=== PATIENT | male | born 1950 | race Caucasian/White ===

== ENCOUNTER 2022-02-11 15:34 | Inpatient (IN) | payer MEDICARE ==
[2022-02-11] MEDS ORDERED: AMPICILLIN-SULBACTAM 3 GM in SODIUM CHLORIDE 0.9% 100 ML IVPB STA (16:38)
[2022-02-11] MEDS ORDERED: VANCOMYCIN IV PER PHARMACY 1 EACH MISC MISCELLANE PRN (16:38)
[2022-02-11 16:54] LABS: Basophils # (A) 0.1 k/uL (0-0.2); Basophils % (A) 1 %; Eosinophils # (A) 0.3 k/uL (0-0.7); Eosinophils % (A) 4 %; HCT 47.6 % (39.0-53.0); HGB 15.7 gm/dL (13.0-17.5); Lymphocytes # (A) 1.4 k/uL (1.0-4.8); Lymphocytes % (A) 17 %; MCH 30.7 pg (25.0-35.0); MCHC 33.1 g/dL (31.0-37.0); MCV 92.8 fL (80.0-100.0); Mean Platelet Volume 6.5; Monocytes # (A) 0.7 k/uL (0-1.0); Monocytes % (A) 8 %; Neutrophils # (A) 6.1 k/uL (1.3-7.7); Neutrophils % (A) 70 %; Platelet Count 329 k/uL (150-450); RBC 5.13 m/uL (4.30-5.90); RDW 12.8 % (11.5-15.5); WBC 8.7 k/uL (3.8-10.6)
[2022-02-11 17:11] LABS: Albumin 4.3 g/dL (3.5-5.0); Calcium 10.1 mg/dL (8.4-10.2); Potassium 5.5 mmol/L (3.5-5.1); Total Bilirubin 0.9 mg/dL (0.2-1.3); Total Protein 8.3 g/dL (6.3-8.2)
[2022-02-11] MEDS ORDERED: VANCOMYCIN 1,750 MG in SODIUM CHLORIDE 0.9% 500 ML 500 ML IVPB ONE (17:30)
[2022-02-11] MEDS ORDERED: SODIUM CHLORIDE 0.9% 1,000 ML IV STA (17:55)
--- NOTE | 2022-02-11 17:57 | ED ---
General Adult HPI - General Chief complaint: Wound/Laceration Stated complaint: R foot pain Time Seen by Provider: 02/11/22 15:40 Source: patient Mode of arrival: ambulatory Limitations: no limitations - History of Present Illness Initial comments: 71-year-old male presents to the emergency department for admission. States that he is currently being treated for a wound on his right foot by his food expeditor, Dr. Barajas. On he dropped a transmission on his right foot. The dorsal aspect of his right foot was punctured with a nail. He went into [facility] the next day and an x-ray was performed. He was placed on Keflex. Take the medications as directed for 10 days and his wound continued to get worse. He saw Dr. Barajas yesterday who debride at the area. He switched his antibiotics. He was to go back today to the office for evaluation. Dr. Barajas did not like the way that it was healing and recommended that he come into the ospital for IV antibiotics. Patient is a diabetic. Has been ambulating with a postop shoe. He denies any fevers or chills. No other alleviating, precipitating or modifying factors - Related Data Home Medications Medication Instructions Recorded Confirmed Atorvastatin [Lipitor] 10 mg PO HS 02/11/22 02/11/22 Cephalexin [Keflex] 500 mg PO QID 02/11/22 02/11/22 Esomeprazole Magnesium [NexIUM 20 mg PO HS 02/11/22 02/11/22 24Hr] Metoprolol Succinate (ER) [Toprol 50 mg PO HS 02/11/22 02/11/22 Xl] Pioglitazone [Actos] 30 mg PO HS 02/11/22 02/11/22 Pramipexole [Mirapex] 0.125 mg PO HS 02/11/22 02/11/22 lisinopriL 10 mg PO HS 02/11/22 02/11/22 metFORMIN HCL [Glucophage] 1,000 mg PO HS 02/11/22 02/11/22 traZODone HCL [Desyrel] 25 - 50 mg PO HS 02/11/22 02/11/22 Allergies Allergy/AdvReac Type Severity Reaction Status Date / Time No Known Allergies Allergy Verified 02/11/22 18:31 Review of Systems ROS Statement: Those systems with pertinent positive or pertinent negative responses have been documented in the HPI. ROS Other: All systems not noted in ROS Statement are negative. Past Medical History Past Medical History: CVA/TIA, Diabetes Mellitus History of Any Multi-Drug Resistant Organisms: None Reported Past Surgical History: Back Surgery, Cholecystectomy, Orthopedic Surgery Past Psychological History: No Psychological Hx Reported Smoking Status: Never smoker Past Alcohol Use History: Occasional Past Drug Use History: None Reported - Past Family History family Family Medical History: No Reported History General Exam Limitations: no limitations General appearance: alert, in no apparent distress Head exam: Present: atraumatic, normocephalic, normal inspection Eye exam: Present: normal appearance, PERRL, EOMI. Absent: scleral icterus, conjunctival injection, periorbital swelling ENT exam: Present: normal exam, mucous membranes moist Neck exam: Present: normal inspection. Absent: tenderness, meningismus, lymphadenopathy Respiratory exam: Present: normal lung sounds bilaterally. Absent: respiratory distress, wheezes, rales, rhonchi, stridor Cardiovascular Exam: Present: normal rhythm, tachycardia, normal heart sounds. Absent: systolic murmur, diastolic murmur, rubs, gallop, clicks GI/Abdominal exam: Present: soft, normal bowel sounds. Absent: distended, tenderness, guarding, rebound, rigid Extremities exam: Present: full ROM, tenderness, normal capillary refill, pedal edema, other (puncture wound dorsal right foot. approximately 10 x 10 x 5 mm. well -debrided. no pustular drainage. surrounding erythema. normal cap refill. ). Absent: joint swelling, calf tenderness Back exam: Present: normal inspection Neurological exam: Present: alert, oriented X3, CN II-XII intact Psychiatric exam: Present: normal affect, normal mood Skin exam: Present: warm, dry, intact, normal color. Absent: rash Course Vital Signs 02/11/22 02/11/22 15:37 20:21 Temperature 98.6 F Pulse Rate 117 H 104 H Respiratory 20 18 Rate Blood Pressure 150/84 175/97 O2 Sat by Pulse 96 97 Oximetry Medical Decision Making - Medical Decision Making Upon arrival patient is placed into room 25. A thorough history and physical exam was performed. IV access is established and laboratory studies are conducted. Laboratory studies are reviewed and demonstrated a lactic acid 2.2. He was given a dose of Unasyn and Vanco. X-rays and wound cultures were performed at Dr. Barajas's office yesterday and we will request these records. The results of the laboratory studies were discussed the patient. As he has failed outpatient treatment, admission was recommended for which the patient did agree to. Called and spoke with Dr. Levin who agreed to admit the patient. Infectious disease will be counseling. Patient transferred to floor in stable condition - Lab Data Result diagrams: 02/13/22 05:40 02/13/22 05:40 Lab Results 02/11/22 02/11/22 02/11/22 Range/Units 16:36 16:36 16:36 WBC 8.7 (3.8-10.6) k/uL RBC 5.13 (4.30-5.90) m/uL Hgb 15.7 (13.0-17.5) gm/dL Hct 47.6 (39.0-53.0) % MCV 92.8 (80.0-100.0) fL MCH 30.7 (25.0-35.0) pg MCHC 33.1 (31.0-37.0) g/dL RDW 12.8 (11.5-15.5) % Plt Count 329 (150-450) k/uL MPV 6.5 Neutrophils % 70 % Lymphocytes % 17 % Monocytes % 8 % Eosinophils % 4 % Basophils % 1 % Neutrophils # 6.1 (1.3-7.7) k/uL Lymphocytes # 1.4 (1.0-4.8) k/uL Monocytes # 0.7 (0-1.0) k/uL Eosinophils # 0.3 (0-0.7) k/uL Basophils # 0.1 (0-0.2) k/uL Sodium 137 (137-145) mmol/L Potassium 5.5 H (3.5-5.1) mmol/L Chloride 101 (98-107) mmol/L Carbon Dioxide 27 (22-30) mmol/L Anion Gap 9 mmol/L BUN 19 (9-20) mg/dL Creatinine 1.05 (0.66-1.25) mg/dL Est GFR (CKD-EPI)AfAm 82 (>60 ml/min/1.73 sqM) Est GFR (CKD-EPI)NonAf 71 (>60 ml/min/1.73 sqM) Glucose 141 H (74-99) mg/dL Lactic Ac Sepsis Rflx Plasma Lactic Acid Darius 2.2 H* (0.7-2.0) mmol/L Calcium 10.1 (8.4-10.2) mg/dL Total Bilirubin 0.9 (0.2-1.3) mg/dL AST 36 (17-59) U/L ALT 32 (4-49) U/L Alkaline Phosphatase 67 (38-126) U/L C-Reactive Protein 1.0 H (<1.0) mg/dL Total Protein 8.3 H (6.3-8.2) g/dL Albumin 4.3 (3.5-5.0) g/dL 02/11/22 Range/Units 17:14 WBC (3.8-10.6) k/uL RBC (4.30-5.90) m/uL Hgb (13.0-17.5) gm/dL Hct (39.0-53.0) % MCV (80.0-100.0) fL MCH (25.0-35.0) pg MCHC (31.0-37.0) g/dL RDW (11.5-15.5) % Plt Count (150-450) k/uL MPV Neutrophils % % Lymphocytes % % Monocytes % % Eosinophils % % Basophils % % Neutrophils # (1.3-7.7) k/uL Lymphocytes # (1.0-4.8) k/uL Monocytes # (0-1.0) k/uL Eosinophils # (0-0.7) k/uL Basophils # (0-0.2) k/uL Sodium (137-145) mmol/L Potassium (3.5-5.1) mmol/L Chloride (98-107) mmol/L Carbon Dioxide (22-30) mmol/L Anion Gap mmol/L BUN (9-20) mg/dL Creatinine (0.66-1.25) mg/dL Est GFR (CKD-EPI)AfAm (>60 ml/min/1.73 sqM) Est GFR (CKD-EPI)NonAf (>60 ml/min/1.73 sqM) Glucose (74-99) mg/dL Lactic Ac Sepsis Rflx Y Plasma Lactic Acid Darius (0.7-2.0) mmol/L Calcium (8.4-10.2) mg/dL Total Bilirubin (0.2-1.3) mg/dL AST (17-59) U/L ALT (4-49) U/L Alkaline Phosphatase (38-126) U/L C-Reactive Protein (<1.0) mg/dL Total Protein (6.3-8.2) g/dL Albumin (3.5-5.0) g/dL Disposition Clinical Impression: Cellulitis, Puncture wound, Failure of outpatient treatment Disposition[facility] Condition: Stable Is patient prescribed a controlled substance at d/c from ED?: No Decision to Admit Reason: Admit from EC Decision Date: 02/11/22 Decision Time: 18:38
[2022-02-11] MEDS ORDERED: ACETAMINOPHEN TAB 325 MG TAB PO PRN (18:38)
[2022-02-11] MEDS ORDERED: NALOXONE 0.4 MG/ML 1 ML VIAL IV PRN (18:38)
[2022-02-11] MEDS ORDERED: HYDROcodone/APAP 10-325MG 1 EACH TAB PO ONE (19:06)
--- NOTE | 2022-02-12 00:07 | P.HPIM ---
History of Present Illness H&P Date: 02/11/22 Chief Complaint: right foot ulcer 71 year old male with DM, hypertension patient had a recent injury about a week ago ,resulted in a wound over the right foot, presented to the ED at the time and was given a prescription of Keflex, he followed up with podiatry, and was given more antibiotics, then yesterday he had debridement done. 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 patient denies fever, chills, reports some pain in his foot controlled with nor co. denies any swelling in the leg. workup in the ED, showed elevated CRP, mild hyperkalemia , lactic acidosis . no leukocytosis Review of Systems Pertinent positives as noted in HPI. All other systems were reviewed and are negative Past Medical History Past Medical History: CVA/TIA, Diabetes Mellitus Additional Past Medical History / Comment(s): CVA 5 yrs ago with no residual. History of Any Multi-Drug Resistant Organisms: None Reported Past Surgical History: Back Surgery, Cholecystectomy, Orthopedic Surgery Additional Past Surgical History / Comment(s): Right shoulder surgery. Past Anesthesia/Blood Transfusion Reactions: No Reported Reaction Past Psychological History: No Psychological Hx Reported Smoking Status: Never smoker Past Alcohol Use History: Occasional Past Drug Use History: None Reported - Past Family History family Family Medical History: No Reported History Medications and Allergies Home Medications Medication Instructions Recorded Confirmed Type Atorvastatin [Lipitor] 10 mg PO HS 02/11/22 02/11/22 History Cephalexin [Keflex] 500 mg PO QID 02/11/22 02/11/22 History Esomeprazole Magnesium [NexIUM 20 mg PO HS 02/11/22 02/11/22 History 24Hr] Metoprolol Succinate (ER) [Toprol 50 mg PO HS 02/11/22 02/11/22 History Xl] Pioglitazone [Actos] 30 mg PO HS 02/11/22 02/11/22 History Pramipexole [Mirapex] 0.125 mg PO HS 02/11/22 02/11/22 History lisinopriL 10 mg PO HS 02/11/22 02/11/22 History metFORMIN HCL [Glucophage] 1,000 mg PO HS 02/11/22 02/11/22 History traZODone HCL [Desyrel] 25 - 50 mg PO HS 02/11/22 02/11/22 History Allergies Allergy/AdvReac Type Severity Reaction Status Date / Time No Known Allergies Allergy Verified 02/11/22 18:31 Physical Exam Vitals: Vital Signs Temp Pulse Pulse Resp BP BP Pulse Ox 02/11/22 22:06 97.8 F 102 H 16 183/98 98 02/11/22 21:47 18 02/11/22 20:21 104 H 18 175/97 97 02/11/22 15:37 98.6 F 117 H 20 150/84 96 Intake and Output 02/11/22 02/11/22 02/12/22 14:59 22:59 06:59 Output Total 3 Balance -3 Output: Stool 3 Other: Voiding Method Toilet # Voids 0 Weight 90.718 kg Constitutional: No acute distress, conversant, pleasant Eyes: Anicteric sclerae, moist conjunctiva, Pupils equal round reactive to light ENMT: NC/AT Oropharynx clear, no erythema, or exudates Neck: Supple, FROM, no masses, or JVD No carotid bruits No thyromegaly Lungs: Clear to auscultation Clear to percussion Normal respiratory effort, no accessory muscle use Cardiovascular: Heart regular in rate and rhythm, No murmurs, gallops, or rubs No peripheral edema Abdominal: Soft Nontender, no guarding, rebound or rigidity Abdomen moving with respiration Normoactive bowel sounds No hepatomegaly, No splenomegaly No palpable mass No abdominal wall hernia noted Skin: erythema around a 1.5X1.5 cm ulcer on the dorsum of the right foot no drainage, tender to palpation , slight induration around the wound otherwise, Normal temperature, tone, texture, turgor No induration No subcutaneous nodules No rash, lesions No ulcers Extremities: No digital cyanosis No clubbing Pedal pulses intact and symmetrical Radial pulses intact and symmetrical No calf tenderness Psychiatric: Alert and oriented to person, place and time Appropriate affect fair judgement Neuro Muscles Strength 5/5 in all 4 extremities Sensation to light touch grossly present throughout Cranial nerves II-XII grossly intact No focal sensory deficits Lymphatics: no palpable cervical or supraclavicular , or inguinal lymph nodes Results CBC & Chem 7: 02/11/22 16:36 02/11/22 16:36 Labs: Abnormal Lab Results - Last 24 Hours (Table) 02/11/22 02/11/22 Range/Units 16:36 16:36 Potassium 5.5 H (3.5-5.1) mmol/L Glucose 141 H (74-99) mg/dL Plasma Lactic Acid Darius 2.2 H* (0.7-2.0) mmol/L C-Reactive Protein 1.0 H (<1.0) mg/dL Total Protein 8.3 H (6.3-8.2) g/dL Thrombosis Risk Factor Assmnt - Choose All That Apply Any of the Below Risk Factors Present?: Yes Each Factor Represents 1 point: Obesity (BMI >25) Other Risk Factors: Yes Each Risk Factor Represents 2 Points: Age 61-74 years Thrombosis Risk Factor Assessment Total Risk Factor Score: 3 Thrombosis Risk Factor Assessment Level: Moderate Risk Assessment and Plan Assessment: right foot ulcer secondary to traumatic injury failed outpatient therapy initiate on IV antibiotics with vanco follow up cultures pain control with opiods lactic acidosis IVF hydration with normal saline resolved mild hyperkalemia follow up closely chronic conditions DM , insulin sliding scale hypertension , resume home meds heparin sc tid for DVT PPX PPI full code anticipated length of stay < 2 midnights
[2022-02-12] MEDS: HEPARIN SODIUM,PORCINE/PF 5,000 UNIT/0.5 ML SYRINGE SQ SCH ×3 (00:38→18:59)
[2022-02-12] MEDS: METOPROLOL SUCCINATE (ER) 50 MG TAB.ER.24H PO SCH ×2 (00:39→22:10)
[2022-02-12] MEDS: PRAMIPEXOLE 0.125 MG TAB PO SCH ×2 (00:39→22:10)
[2022-02-12] MEDS: MORPHINE SULFATE 4 MG/ML SYRINGE IVP PRN ×4 (02:43→18:58)
[2022-02-12 07:05] LABS: Glucose,Whole Blood 156 mg/dL (75-99)
[2022-02-12 08:38] LABS: Basophils # (A) 0.05 X 10*3/uL (0.00-0.10); Basophils % (A) 0.6 %; Eosinophils # (A) 0.29 X 10*3/uL (0.04-0.35); Eosinophils % (A) 3.6 %; HCT 43.7 % (39.6-50.0); HGB 14.5 g/dL (13.0-17.0); Immature Grans, Automated 0.4 %; Lymphocytes # (A) 1.48 X 10*3/uL (0.90-5.00); Lymphocytes % (A) 18.3 %; MCH 30.7 pg (27.0-32.0); MCHC 33.2 g/dL (32.0-37.0); MCV 92.4 fL (80.0-97.0); Monocytes # (A) 0.72 X 10*3/uL (0.20-1.00); Monocytes % (A) 8.9 %; NRBC Per 100 WBC 0 /100 WBCS (0.0-0.0); Neutrophils # (A) 5.52 X 10*3/uL (1.80-7.70); Neutrophils % (A) 68.2 %; Platelet Count 285 X 10*3/uL (140-440); RBC 4.73 X 10*6/uL (4.40-5.60); RDW 12.8 % (11.5-14.5); WBC 8.09 X 10*3/uL (4.50-10.00)
[2022-02-12 08:57] LABS: African American GFR (CKD) 79.1 (60.0-200.0); Anion Gap 10.4 mmol/L (10.00-18.00); BUN/Creat Ratio 14.26 Ratio (12.00-20.00); Blood Urea Nitrogen 15.4 mg/dL (9.0-27.0); Calcium 9.2 mg/dL (8.7-10.3); Carbon Dioxide 23.5 mmol/L (20.0-27.5); Non-African American GFR(CKD) 68.2 (60.0-200.0); Potassium 5.2 mmol/L (3.5-5.5)
[2022-02-12] MEDS: INSULIN ASPART (NovoLOG) 100 UNIT/ML VIAL SQ SCH ×4 (09:23→21:43)
--- NOTE | 2022-02-12 10:50 | P.PN ---
Subjective Progress Note Date: 02/12/22 Principal diagnosis: Cellulitis 71 year old male with DM, hypertension Patient presents to the hospital with worsening erythema of his right foot. Patient has a chronic wound and most recently is being followed by podiatry team. 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 Those wound cultures are currently pending per patient. workup in the ED, showed elevated CRP, mild hyperkalemia , lactic acidosis . no leukocytosis. Patient was admitted to the hospital for treatment of cellulitis. 02/12/2022: Patient denies any new complaints of nausea vomiting fever or chills Objective - Vital Signs Vital signs: Vital Signs Temp 98.0 F 02/12/22 07:00 Pulse 86 02/12/22 07:00 Resp 18 02/12/22 07:00 BP 116/70 02/12/22 07:00 Pulse Ox 98 02/12/22 07:00 Intake & Output 02/11/22 02/12/22 02/12/22 18:59 06:59 18:59 Intake Total 180 Output Total 3 Balance -3 180 Weight 90.718 kg 90.718 kg Intake: Oral 180 Output: Stool 3 Other: Voiding Method Toilet # Voids 2 - Exam Constitutional: No acute distress, conversant, pleasant Eyes: Anicteric sclerae, moist conjunctiva, Pupils equal round reactive to light ENMT: NC/AT Oropharynx clear, no erythema, or exudates Neck: Supple, FROM, no masses, or JVD No carotid bruits No thyromegaly Lungs: Clear to auscultation Clear to percussion Normal respiratory effort, no accessory muscle use Cardiovascular: Heart regular in rate and rhythm, No murmurs, gallops, or rubs No peripheral edema Abdominal: Soft Nontender, no guarding, rebound or rigidity Abdomen moving with respiration Normoactive bowel sounds No hepatomegaly, No splenomegaly No palpable mass No abdominal wall hernia noted Skin: erythema around a 1.5X1.5 cm ulcer on the dorsum of the right foot no drainage, tender to palpation , slight induration around the wound otherwise, Normal temperature, tone, texture, turgor No induration No subcutaneous nodules No rash, lesions No ulcers Extremities: No digital cyanosis No clubbing Pedal pulses intact and symmetrical Radial pulses intact and symmetrical No calf tenderness Psychiatric: Alert and oriented to person, place and time Appropriate affect fair judgement Neuro Muscles Strength 5/5 in all 4 extremities Sensation to light touch grossly present throughout Cranial nerves II-XII grossly intact No focal sensory deficits Lymphatics: no palpable cervical or supraclavicular , or inguinal lymph nodes - Labs CBC & Chem 7: 02/12/22 05:48 02/12/22 05:48 Labs: Abnormal Lab Results - Last 24 Hours (Table) 02/11/22 02/11/22 02/12/22 Range/Units 16:36 16:36 05:48 MPV 9.0 L (9.5-12.2) fL Potassium 5.5 H (3.5-5.1) mmol/L Glucose 141 H (74-99) mg/dL POC Glucose (mg/dL) (75-99) mg/dL Plasma Lactic Acid Darius 2.2 H* (0.7-2.0) mmol/L C-Reactive Protein 1.0 H (<1.0) mg/dL Total Protein 8.3 H (6.3-8.2) g/dL 02/12/22 02/12/22 Range/Units 05:48 07:04 MPV (9.5-12.2) fL Potassium (3.5-5.1) mmol/L Glucose 151 H (74-99) mg/dL POC Glucose (mg/dL) 156 H (75-99) mg/dL Plasma Lactic Acid Darius (0.7-2.0) mmol/L C-Reactive Protein (<1.0) mg/dL Total Protein (6.3-8.2) g/dL Assessment and Plan (1) Cellulitis Current Visit: Yes Status: Acute Code(s): L03.90 - CELLULITIS, UNSPECIFIED SNOMED Code(s): 701383848 Plan: right foot ulcer secondary to traumatic injury Cellulitis right foot failed outpatient therapy Patient is status post debridement was recently performed by gang vibrator operator outpatient. Cultures are currently pending Patient is currently on IV antibiotics vancomycin which we will continue Continue with pain control -Infectious disease team following lactic acidosis-present on admission IVF hydration with normal saline resolved hyperkalemia Resolved Diabetes mellitus type 2 -Check hemoglobin A1c, continue sliding scale Hypertension -Continue with metoprolol DVT prophylaxis: Heparin subcu GI prophylaxis: PPI full code
[2022-02-12] MEDS: VANCOMYCIN 1,750 MG in SODIUM CHLORIDE 0.9% 500 ML 500 ML IVPB SCH (11:35)
[2022-02-12 12:22] LABS: Glucose,Whole Blood 125 mg/dL (75-99)
[2022-02-12 17:09] LABS: Glucose,Whole Blood 120 mg/dL (75-99)
[2022-02-12 21:14] LABS: Glucose,Whole Blood 117 mg/dL (75-99)
[2022-02-12] MEDS: PANTOPRAZOLE 40 MG TABLET PO SCH (22:10)
[2022-02-12] MEDS: lisinopriL 10 MG TAB PO SCH (22:10)
[2022-02-12] MEDS: ATORVASTATIN 10 MG TAB PO SCH (22:10)
--- NOTE | 2022-02-13 00:05 | P.CONS ---
History of Present Illness - Reason for Consult Consult date: 02/12/22 Right foot puncture wound and cellulitis Requesting physician: Chelsey Duenas - Chief Complaint Right foot nonhealing wound x one week - History of Present Illness Patient is a 71-year-old male with a past medical history significant for diabetes mellitus and hypertension apparently the patient did have an injury to the right foot as a transmission fell on his right foot at the patient was trying to move it leading to a puncture wound, patient apparently was seen in the ER and has been treated with the Keflex and was advised to follow-up with podiatry patient was evaluated by Dr. Barajas yesterday apparently he did some debridement but looks like no culture and the patient was sent to the ER for IV antibiotic therapy concerning for cellulitis patient on presentation to the hospital was afebrile and no fever have been recorded subsequently patient did have normal white count kidney function has been normal patient did have blood cultures obtained which are currently pending no local cultures patient was started on vancomycin infectious disease was consulted for further management of antibiotic therapy, patient currently denies having any fever or any chills, repeat denies having any URI symptoms no chest pain no shortness of breath no cough no nausea no vomiting no abdominal pain no diarrhea patient did have mild healthy looking pain to the right foot especially when he walks on it or it is touch more of a 2-3 out of 10 and no radiation and denies have any foul-smelling drainage Review of Systems Positive point has been mentioned in the HPI rest of the systems are negative Past Medical History Past Medical History: CVA/TIA, Diabetes Mellitus Additional Past Medical History / Comment(s): CVA 5 yrs ago with no residual. History of Any Multi-Drug Resistant Organisms: None Reported Past Surgical History: Back Surgery, Cholecystectomy, Orthopedic Surgery Additional Past Surgical History / Comment(s): Right shoulder surgery. Past Anesthesia/Blood Transfusion Reactions: No Reported Reaction Past Psychological History: No Psychological Hx Reported Smoking Status: Never smoker Past Alcohol Use History: Occasional Past Drug Use History: None Reported - Past Family History family Family Medical History: No Reported History Medications and Allergies Home Medications Medication Instructions Recorded Confirmed Type Atorvastatin [Lipitor] 10 mg PO HS 02/11/22 02/11/22 History Cephalexin [Keflex] 500 mg PO QID 02/11/22 02/11/22 History Esomeprazole Magnesium [NexIUM 20 mg PO HS 02/11/22 02/11/22 History 24Hr] Metoprolol Succinate (ER) [Toprol 50 mg PO HS 02/11/22 02/11/22 History Xl] Pioglitazone [Actos] 30 mg PO HS 02/11/22 02/11/22 History Pramipexole [Mirapex] 0.125 mg PO HS 02/11/22 02/11/22 History lisinopriL 10 mg PO HS 02/11/22 02/11/22 History metFORMIN HCL [Glucophage] 1,000 mg PO HS 02/11/22 02/11/22 History traZODone HCL [Desyrel] 25 - 50 mg PO HS 02/11/22 02/11/22 History Allergies Allergy/AdvReac Type Severity Reaction Status Date / Time No Known Allergies Allergy Verified 02/11/22 18:31 Physical Exam Vitals: Vital Signs Temp Pulse Pulse Resp BP BP BP 02/12/22 14:38 97.6 F 82 18 162/80 02/12/22 07:00 98.0 F 86 18 116/70 02/12/22 02:40 98.2 F 89 17 144/78 02/11/22 22:06 97.8 F 102 H 16 183/98 02/11/22 21:47 18 02/11/22 20:21 104 H 18 175/97 Pulse Ox 02/12/22 14:38 97 02/12/22 07:00 98 02/12/22 02:40 95 02/11/22 22:06 98 02/11/22 21:47 02/11/22 20:21 97 Intake and Output 02/12/22 02/12/22 02/12/22 06:59 14:59 22:59 Intake Total 360 Balance 360 Intake: Oral 360 Other: # Voids 2 GENERAL DESCRIPTION: Elderly male lying in bed, no distress. No tachypnea or accessory muscle of respiration use. HEENT: Shows Pallor , no scleral icterus. Oral mucous membrane is dry. No pharyngeal erythema or thrush NECK: Trachea central, no thyromegaly. LUNGS: Unlabored breathing. Clear to auscultation anteriorly. No wheeze or crackle. HEART: S1, S2, regular rate and rhythm. No loud murmur ABDOMEN: Soft, no tenderness , guarding or rigidity, no organomegaly EXTREMITIES: No edema of feet. Right foot dorsum did have a wound with some slough tissue minimal surrounding redness no foul-smelling drainage SKIN: No rash, no masses palpable. NEUROLOGICAL: The patient is awake, alert, oriented x3, mood and affect normal. Results CBC & Chem 7: 02/12/22 05:48 02/12/22 05:48 Labs: Abnormal Lab Results - Last 24 Hours (Table) 02/11/22 02/11/22 02/12/22 Range/Units 16:36 16:36 05:48 MPV 9.0 L (9.5-12.2) fL Potassium 5.5 H (3.5-5.1) mmol/L Glucose 141 H (74-99) mg/dL POC Glucose (mg/dL) (75-99) mg/dL Plasma Lactic Acid Darius 2.2 H* (0.7-2.0) mmol/L C-Reactive Protein 1.0 H (<1.0) mg/dL Total Protein 8.3 H (6.3-8.2) g/dL 02/12/22 02/12/22 02/12/22 Range/Units 05:48 07:04 12:22 MPV (9.5-12.2) fL Potassium (3.5-5.1) mmol/L Glucose 151 H (74-99) mg/dL POC Glucose (mg/dL) 156 H 125 H (75-99) mg/dL Plasma Lactic Acid Darius (0.7-2.0) mmol/L C-Reactive Protein (<1.0) mg/dL Total Protein (6.3-8.2) g/dL Assessment and Plan (1) Cellulitis Current Visit: Yes Status: Acute Code(s): L03.90 - CELLULITIS, UNSPECIFIED SNOMED Code(s): 905401553 Plan: 1patient with right foot diabetic foot infection in this patient did have a traumatic wound to the right foot with evidence of secondary cellulitis failing outpatient oral Keflex therapy question of possible community associated MRSA the wound looks superficial however underlying deep infection not entirely excluded. 2we will obtain x-rays of the right foot to be sure evidence of any bony abnormality check a sed rate and a CRP. 3local wound culture to guide further antibiotic therapy. 4vancomycin pharmacy to dose target trough of 15 while watching kidney function and vancomycin trough closely. 5local wound care with the Medihoney followed by moist dressing to be changed daily. We will follow on clinical condition and cultures to further adjust medication if needed Thank you for this consultation will follow this patient along with you
[2022-02-13] MEDS: MORPHINE SULFATE 4 MG/ML SYRINGE IVP PRN ×2 (02:28→09:51)
[2022-02-13] MEDS: VANCOMYCIN 1,750 MG in SODIUM CHLORIDE 0.9% 500 ML 500 ML IVPB SCH ×2 (02:29→17:42)
[2022-02-13] MEDS: HEPARIN SODIUM,PORCINE/PF 5,000 UNIT/0.5 ML SYRINGE SQ SCH ×4 (02:32→22:41)
[2022-02-13 06:32] LABS: African American GFR (CKD) 82 (>60 ml/min/1.73 sqM); Anion Gap 4 mmol/L; Blood Urea Nitrogen 12 mg/dL (9-20); C Reactive Protein 0.8 mg/dL (<1.0); Calcium 8.6 mg/dL (8.4-10.2); Carbon Dioxide 28 mmol/L (22-30); Chloride 101 mmol/L (98-107); Glucose 136 mg/dL (74-99); Non-African American GFR(CKD) 71 (>60 ml/min/1.73 sqM); Potassium 4.6 mmol/L (3.5-5.1); Sodium 133 mmol/L (137-145)
[2022-02-13 07:16] LABS: Glucose,Whole Blood 144 mg/dL (75-99)
--- NOTE | 2022-02-13 08:17 | XR ---
EXAMINATION TYPE: XR foot complete RT DATE OF EXAM: 02/13/2022 COMPARISON: None HISTORY: Puncture wound dorsum of foot TECHNIQUE: Three-view right foot FINDINGS: No acute fractures are evident. There is diffuse soft tissue swelling. Secondary ossificati on center appears to be posterior to the navicular. Correlate with location of the patient's pain. No suspicious cortical erosions are identified. Plantar and Achilles tendon calcaneal heel spurs are present. IMPRESSION: 1. No acute osseous abnormality evident. No suspicious changes for osteomyelitis. 2. Soft tissue swelling over the dorsum of the foot. Some air may be present. Correlate with the time of the acute injury. Infection is not excluded.
[2022-02-13 09:12] LABS: Basophils # (A) 0.03 X 10*3/uL (0.00-0.10); Basophils % (A) 0.4 %; Eosinophils # (A) 0.34 X 10*3/uL (0.04-0.35); Eosinophils % (A) 4.6 %; HCT 42.5 % (39.6-50.0); HGB 14.2 g/dL (13.0-17.0); Immature Grans, Automated 0.3 %; Lymphocytes # (A) 1.42 X 10*3/uL (0.90-5.00); Lymphocytes % (A) 19.3 %; MCH 30.9 pg (27.0-32.0); MCHC 33.4 g/dL (32.0-37.0); MCV 92.4 fL (80.0-97.0); Mean Platelet Volume 8.9 fL (9.5-12.2); Monocytes # (A) 0.59 X 10*3/uL (0.20-1.00); NRBC Per 100 WBC 0 /100 WBCS (0.0-0.0); Neutrophils # (A) 4.94 X 10*3/uL (1.80-7.70); Neutrophils % (A) 67.4 %; Platelet Count 263 X 10*3/uL (140-440); RDW 12.7 % (11.5-14.5); WBC 7.34 X 10*3/uL (4.50-10.00)
[2022-02-13 09:40] LABS: Erythrocyte Sedimentation Rate 31 mm/Hr (0-20)
[2022-02-13] MEDS: INSULIN ASPART (NovoLOG) 100 UNIT/ML VIAL SQ SCH ×4 (09:50→21:00)
[2022-02-13 12:10] LABS: Glucose,Whole Blood 129 mg/dL (75-99)
[2022-02-13] MEDS: oxyCODONE-APAP 10-325MG 1 EACH TAB PO PRN ×2 (15:44→20:59)
--- NOTE | 2022-02-13 16:00 | P.PN ---
Subjective Progress Note Date: 02/13/22 Principal diagnosis: Right foot wound Patient was seen and examined. No acute events overnight. Patient reports improvement in the erythema and swelling around his right foot wound. He is currently on vancomycin IV. Wound cultures are collected and is pending. According to nursing, he has been using morphine [id number] for pain control. Objective - Vital Signs Vital signs: Vital Signs Temp 97.8 F 02/13/22 13:42 Pulse 74 02/13/22 13:42 Resp 16 02/13/22 13:42 BP 127/82 02/13/22 13:42 Pulse Ox 97 02/13/22 13:42 Intake & Output 02/12/22 02/13/22 02/13/22 18:59 06:59 18:59 Intake Total 2500 358 Balance 2500 358 Intake: Intake, IV Titration 1540 Amount Sodium Chloride 0.9% 1, 1040 000 ml @ 130 mls/hr IV . Q7H42M [facility] Rx#:[id number] Vancomycin 1,750 mg In 500 Sodium Chloride 0.9% 500 ml 500 ml @ 167 mls/hr IVPB Q16H [facility] Rx#: [id number] Oral 960 358 Other: Voiding Method Toilet # Voids 1 - Exam General: [non toxic], [no distress], [appears at stated age] Derm: [warm], [dry] Head: [atraumatic], [normocephalic], [symmetric] Eyes: [EOMI], [no lid lag], [anicteric sclera] Mouth: [no lip lesion], [mucus membranes moist] Cardiovascular: [S1S2 reg], [no murmur], [positive DP pulse bilateral], Lungs: [CTA bilateral], [no rhonchi, no rales] , [no accessory muscle use] Abdominal: [soft], [ nontender to palpation], [no guarding], [no appreciable organomegaly] Ext: [no gross muscle atrophy], [no edema], [no contractures], [Right dorsal foot with open wound, no discharge, dressing clean dry and intact] Neuro: [no focal neuro deficits] Psych: [Alert], [oriented], [appropriate affect] - Labs CBC & Chem 7: 02/13/22 05:40 02/13/22 05:40 Labs: Abnormal Lab Results - Last 24 Hours (Table) 02/12/22 02/12/22 02/13/22 Range/Units 17:07 21:12 05:40 MPV (9.5-12.2) fL ESR (0-20) mm/Hr Sodium (137-145) mmol/L Glucose (74-99) mg/dL POC Glucose (mg/dL) 120 H 117 H (75-99) mg/dL Hemoglobin A1c 6.7 H (0.0-6.0) % 02/13/22 02/13/22 02/13/22 Range/Units 05:40 05:40 07:14 MPV 8.9 L (9.5-12.2) fL ESR 31 H (0-20) mm/Hr Sodium 133 L (137-145) mmol/L Glucose 136 H (74-99) mg/dL POC Glucose (mg/dL) 144 H (75-99) mg/dL Hemoglobin A1c (0.0-6.0) % 02/13/22 Range/Units 12:08 MPV (9.5-12.2) fL ESR (0-20) mm/Hr Sodium (137-145) mmol/L Glucose (74-99) mg/dL POC Glucose (mg/dL) 129 H (75-99) mg/dL Hemoglobin A1c (0.0-6.0) % Microbiology - Last 24 Hours (Table) 02/12/22 18:55 Gram Stain - Preliminary Foot - Right Wound Culture - Preliminary 02/11/22 16:30 Blood Culture - Preliminary Blood No Growth after 24 hours Assessment and Plan Assessment: Right foot ulcer secondary to traumatic injury Cellulitis right foot Failed outpatient therapy with Keflex CRP within normal limits, ESR pending Patient is status post debridement was recently performed by market news reporter outpatient. Cultures are currently pending Patient is currently on IV antibiotics vancomycin Continue with pain control. Percocet added for better pain control, attempt to wean morphine Appreciate infectious disease input Diabetes mellitus type 2 A1c 6.7 Continue sliding scale Accu-Cheks 4 times a day Hypoglycemic precautions Hypertension Continue with metoprolol and lisinopril Resolved: lactic acidosis, hyperkalemia Chronic conditions: Restless leg syndrome, dyslipidemia DVT prophylaxis: Heparin subcu GI prophylaxis: Protonix full code Anticipated DC home in 1-2 days after results of wound culture comes back.
[2022-02-13 16:30] LABS: Glucose,Whole Blood 128 mg/dL (75-99)
[2022-02-13 20:52] LABS: Glucose,Whole Blood 144 mg/dL (75-99)
[2022-02-13] MEDS: PANTOPRAZOLE 40 MG TABLET PO SCH (20:59)
[2022-02-13] MEDS: ATORVASTATIN 10 MG TAB PO SCH (20:59)
[2022-02-13] MEDS: METOPROLOL SUCCINATE (ER) 50 MG TAB.ER.24H PO SCH (20:59)
[2022-02-13] MEDS: lisinopriL 10 MG TAB PO SCH (20:59)
[2022-02-13] MEDS: PRAMIPEXOLE 0.125 MG TAB PO SCH (20:59)
--- NOTE | 2022-02-14 00:27 | P.PN ---
Subjective Progress Note Date: 02/13/22 Principal diagnosis: Right foot wound and cellulitis Patient is a 71-year-old male presented to the hospital with a nonhealing wound on the dorsum aspect of the right foot and concern for secondary cellulitis. On today's evaluation that is 02/13/2022, the patient denies having any fever or any chills patient is breathing comfortably did have some discomfort to the rig ht foot dorsum wound area, no drainage no chest pain or shortness of breath or cough no abdominal pain no diarrhea Objective - Vital Signs Vital signs: Vital Signs Temp 97.8 F 02/13/22 13:42 Pulse 74 02/13/22 13:42 Resp 16 02/13/22 13:42 BP 127/82 02/13/22 13:42 Pulse Ox 97 02/13/22 13:42 Intake & Output 02/12/22 02/13/22 02/13/22 18:59 06:59 18:59 Intake Total 2500 358 Balance 2500 358 Intake: Intake, IV Titration 1540 Amount Sodium Chloride 0.9% 1, 1040 000 ml @ 130 mls/hr IV . Q7H42M [facility] Rx#:[id number] Vancomycin 1,750 mg In 500 Sodium Chloride 0.9% 500 ml 500 ml @ 167 mls/hr IVPB Q16H [facility] Rx#: [id number] Oral 960 358 Other: Voiding Method Toilet # Voids 1 - Exam GENERAL DESCRIPTION: An elderly male lying in bed in no distress RESPIRATORY SYSTEM: Unlabored breathing , decreased breath sounds at bases HEART: S1 S2 regular rate and rhythm , ABDOMEN: Soft , no tenderness EXTREMITIES: Right foot wound is currently dressed no drainage on the dressing - Labs CBC & Chem 7: 02/13/22 05:40 02/13/22 05:40 Labs: Abnormal Lab Results - Last 24 Hours (Table) 02/12/22 02/12/22 02/13/22 Range/Units 17:07 21:12 05:40 MPV (9.5-12.2) fL ESR (0-20) mm/Hr Sodium (137-145) mmol/L Glucose (74-99) mg/dL POC Glucose (mg/dL) 120 H 117 H (75-99) mg/dL Hemoglobin A1c 6.7 H (0.0-6.0) % 02/13/22 02/13/22 02/13/22 Range/Units 05:40 05:40 07:14 MPV 8.9 L (9.5-12.2) fL ESR 31 H (0-20) mm/Hr Sodium 133 L (137-145) mmol/L Glucose 136 H (74-99) mg/dL POC Glucose (mg/dL) 144 H (75-99) mg/dL Hemoglobin A1c (0.0-6.0) % 02/13/22 Range/Units 12:08 MPV (9.5-12.2) fL ESR (0-20) mm/Hr Sodium (137-145) mmol/L Glucose (74-99) mg/dL POC Glucose (mg/dL) 129 H (75-99) mg/dL Hemoglobin A1c (0.0-6.0) % Microbiology - Last 24 Hours (Table) 02/12/22 18:55 Gram Stain - Preliminary Foot - Right Wound Culture - Preliminary 02/11/22 16:30 Blood Culture - Preliminary Blood No Growth after 24 hours Assessment and Plan (1) Cellulitis Current Visit: Yes Status: Acute Code(s): L03.90 - CELLULITIS, UNSPECIFIED SNOMED Code(s): 074459428 Plan: 1patient with right foot diabetic foot infection in this patient did have a traumatic wound to the right foot with evidence of secondary cellulitis failing outpatient oral Keflex therapy question of possible community associated MRSA the wound looks superficial however underlying deep infection not entirely excl uded. 2x-rays of the right foot did not show any bony abnormality , ESR mildly elevated 3local wound culture are currently pending 4vancomycin pharmacy to dose target trough of 15 while watching kidney function and vancomycin trough closely. 5local wound care with the [facility] followed by moist dressing to be changed daily. Time with Patient: Less than 30
[2022-02-14] MEDS: oxyCODONE-APAP 10-325MG 1 EACH TAB PO PRN ×4 (02:04→20:41)
[2022-02-14] MEDS: MORPHINE SULFATE 4 MG/ML SYRINGE IVP PRN (04:37)
[2022-02-14 07:27] LABS: Glucose,Whole Blood 117 mg/dL (75-99)
[2022-02-14] MEDS: INSULIN ASPART (NovoLOG) 100 UNIT/ML VIAL SQ SCH ×4 (07:37→20:42)
[2022-02-14] MEDS: HEPARIN SODIUM,PORCINE/PF 5,000 UNIT/0.5 ML SYRINGE SQ SCH ×2 (07:42→14:49)
[2022-02-14] MEDS ORDERED: VANCOMYCIN TROUGH DUE 1 EACH MISC MISCELLANE ONE (09:00)
[2022-02-14] MEDS: VANCOMYCIN 1,750 MG in SODIUM CHLORIDE 0.9% 500 ML 500 ML IVPB SCH (10:39)
[2022-02-14 12:12] LABS: Glucose,Whole Blood 126 mg/dL (75-99)
--- NOTE | 2022-02-14 14:12 | P.PN ---
Subjective Progress Note Date: 02/14/22 Principal diagnosis: Right foot wound Patient was seen and examined. No acute events overnight. Patient reports improvement in the erythema and swelling around his right foot wound. He is currently on vancomycin IV. Wound cultures are collected and is pending. Pain has improved after starting Percocet. Objective - Vital Signs Vital signs: Vital Signs Temp 97.7 F 02/14/22 07:00 Pulse 72 02/14/22 07:00 Resp 16 02/14/22 07:00 BP 137/86 02/14/22 07:00 Pulse Ox 97 02/14/22 07:00 Intake & Output 02/13/22 02/14/22 02/14/22 18:59 06:59 18:59 Intake Total 598 240 Balance 598 240 Intake: Oral 598 240 Other: Voiding Method Toilet Toilet # Voids 2 2 3 - Exam General: [non toxic], [no distress], [appears at stated age] Derm: [warm], [dry] Head: [atraumatic], [normocephalic], [symmetric] Eyes: [EOMI], [no lid lag], [anicteric sclera] Mouth: [no lip lesion], [mucus membranes moist] Cardiovascular: [S1S2 reg], [no murmur], [positive DP pulse bilateral], Lungs: [CTA bilateral], [no rhonchi, no rales] , [no accessory muscle use] Abdominal: [soft], [ nontender to palpation], [no guarding], [no appreciable organomegaly] Ext: [no gross muscle atrophy], [no edema], [no contractures], [Right dorsal foot with open wound, no discharge, dressing clean dry and intact] Neuro: [no focal neuro deficits] Psych: [Alert], [oriented], [appropriate affect] - Labs CBC & Chem 7: 02/13/22 05:40 02/14/22 09:54 Labs: Abnormal Lab Results - Last 24 Hours (Table) 02/13/22 02/13/22 02/14/22 Range/Units 16:28 20:51 07:25 POC Glucose (mg/dL) 128 H 144 H 117 H (75-99) mg/dL 02/14/22 Range/Units 12:11 POC Glucose (mg/dL) 126 H (75-99) mg/dL Microbiology - Last 24 Hours (Table) 02/11/22 16:30 Blood Culture - Preliminary Blood No Growth after 48 hours Assessment and Plan Assessment: Right foot ulcer secondary to traumatic injury Cellulitis right foot Failed outpatient therapy with Keflex CRP within normal limits Patient is status post debridement was recently performed by spiral tube winder outpatient. Cultures are currently pending Patient is currently on IV antibiotics vancomycin Continue with pain control. Percocet added for better pain control, attempt to wean morphine Appreciate infectious disease input Diabetes mellitus type 2 A1c 6.7 Continue sliding scale Accu-Cheks 4 times a day Hypoglycemic precautions Hypertension Continue with metoprolol and lisinopril Resolved: lactic acidosis, hyperkalemia Chronic conditions: Restless leg syndrome, dyslipidemia DVT prophylaxis: Heparin subcu GI prophylaxis: Protonix full code Case discussed with Dr. Hazel, he would like to wait for wound cultures to finalize. Anticipated DC home in 1-2 days after results of wound culture comes back and able to convert to oral antibiotics.
[2022-02-14 17:25] LABS: Glucose,Whole Blood 100 mg/dL (75-99)
[2022-02-14 20:10] LABS: Glucose,Whole Blood 145 mg/dL (75-99)
[2022-02-14] MEDS: PRAMIPEXOLE 0.125 MG TAB PO SCH (20:40)
[2022-02-14] MEDS: METOPROLOL SUCCINATE (ER) 50 MG TAB.ER.24H PO SCH (20:41)
[2022-02-14] MEDS: lisinopriL 10 MG TAB PO SCH (20:41)
[2022-02-14] MEDS: PANTOPRAZOLE 40 MG TABLET PO SCH (20:41)
[2022-02-14] MEDS: ATORVASTATIN 10 MG TAB PO SCH (20:41)
--- NOTE | 2022-02-14 23:46 | P.PN ---
Subjective Progress Note Date: 02/14/22 Principal diagnosis: Right foot wound and cellulitis Patient is a 71-year-old male presented to the hospital with a nonhealing wound on the dorsum aspect of the right foot and concern for secondary cellulitis. On today's evaluation that is 02/14/2022, the patient remains to be afebrile, patient is breathing comfortably, the patient still complaining of discomfort to the right foot dorsum wound area especially when he hangs them down, no drainage no chest pain or shortness of breath or cough no abdominal pain no diarrhea Objective - Vital Signs Vital signs: Vital Signs Temp 97.7 F 02/14/22 07:00 Pulse 72 02/14/22 07:00 Resp 16 02/14/22 07:00 BP 137/86 02/14/22 07:00 Pulse Ox 97 02/14/22 07:00 Intake & Output 02/13/22 02/14/22 02/14/22 18:59 06:59 18:59 Intake Total 598 240 Balance 598 240 Intake: Oral 598 240 Other: Voiding Method Toilet Toilet # Voids 2 2 - Exam GENERAL DESCRIPTION: An elderly male lying in bed in no distress RESPIRATORY SYSTEM: Unlabored breathing , decreased breath sounds at bases HEART: S1 S2 regular rate and rhythm , ABDOMEN: Soft , no tenderness EXTREMITIES: Right foot wound did have some surrounding redness and minimal drainage - Labs CBC & Chem 7: 02/13/22 05:40 02/14/22 09:54 Labs: Abnormal Lab Results - Last 24 Hours (Table) 02/13/22 02/13/22 02/14/22 Range/Units 16:28 20:51 07:25 POC Glucose (mg/dL) 128 H 144 H 117 H (75-99) mg/dL 02/14/22 Range/Units 12:11 POC Glucose (mg/dL) 126 H (75-99) mg/dL Microbiology - Last 24 Hours (Table) 02/11/22 16:30 Blood Culture - Preliminary Blood No Growth after 48 hours Assessment and Plan (1) Cellulitis Current Visit: Yes Status: Acute Code(s): L03.90 - CELLULITIS, UNSPECIFIED SNOMED Code(s): 703561139 Plan: 1patient with right foot diabetic foot infection in this patient did have a traumatic wound to the right foot with evidence of secondary cellulitis failing outpatient oral Keflex therapy question of possible community associated MRSA the wound looks superficial however underlying deep infection not entirely excluded. 2x-rays of the right foot did not show any bony abnormality , ESR mildly marta vated 3local wound culture are currently pending, that will determine his discharge antibiotics 4we will add Unasyn 3 g every 6 hours and continue with vancomycin pharmacy to dose target trough of 15 while watching kidney function and vancomycin trough closely. 5local wound care with the [facility] followed by moist dressing to be changed daily. Time with Patient: Less than 30
[2022-02-15] MEDS: HEPARIN SODIUM,PORCINE/PF 5,000 UNIT/0.5 ML SYRINGE SQ SCH ×2 (00:27→08:25)
[2022-02-15] MEDS: AMPICILLIN-SULBACTAM 3 GM in SODIUM CHLORIDE 0.9% 100 ML IVPB SCH ×3 (01:25→12:25)
[2022-02-15 07:13] LABS: Glucose,Whole Blood 129 mg/dL (75-99)
[2022-02-15 08:04] VITALS: BP 135/79; PULSE 86; RESP 18; TEMP 97.9
[2022-02-15] MEDS: INSULIN ASPART (NovoLOG) 100 UNIT/ML VIAL SQ SCH (08:20)
[2022-02-15] MEDS: oxyCODONE-APAP 10-325MG 1 EACH TAB PO PRN (10:25)
--- NOTE | 2022-02-15 10:30 | P.DS ---
Providers Date of admission: 02/14/22 10:05 Expected date of discharge: 02/15/22 Attending physician: Júnior Levin MD Consults: 02/11/22 18:39 Consult Physician Urgent Consulting Provider: Fredis Hazel Consult Reason/Comments: right foot puncture wound with cellulitis Do you want consulting provider notified?: Yes Primary care physician: Frank Sandy [facility] Course: Patient presents to the hospital with worsening erythema of his right foot. Patient has a chronic wound and most recently is being followed by podiatry team. Patient had a recent debridement performed by his screen tender helper with wound cultures. Those wound cultures are currently pending per patient. workup in the ED, showed elevated CRP, mild hyperkalemia , lactic acidosis. No leukocytosis. Patient was admitted to the hospital for treatment of cellulitis. Patient is lactic acidosis and hyperkalemia resolved with IV hydration. Patient was initially started on vancomycin IV. Wound cultures were collected. Infectious disease was consulted. Foot x-ray showed no osseous abnormality, no suspicious changes for osteomyelitis, soft tissue swelling over the dorsum of the foot. His pain was well-controlled with Percocet as needed. Infectious disease switched his antibiotics from vancomycin IV to Unasyn. 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 Blood cultures are negative at 72 hours. Case was discussed with infectious disease Dr. Hazel. Plans to start Augmentin for 10 days. Plans to follow up with Dr. Hazel within 1 week of discharge. 3 day supply of Percocet prescribed as needed for pain. This complex discharge took about 45 minutes to complete. General: [non toxic], [no distress], [appears at stated age] Derm: [warm], [dry] Head: [atraumatic], [normocephalic], [symmetric] Eyes: [EOMI], [no lid lag], [anicteric sclera] Mouth: [no lip lesion], [mucus membranes moist] Cardiovascular: [S1S2 reg], [no murmur], [positive DP pulse bilateral], Lungs: [CTA bilateral], [no rhonchi, no rales] , [no accessory muscle use] Ext: [no gross muscle atrophy], [no edema], [no contractures], [Right dorsal foot with open wound, no discharge, improved erythema, dressing clean dry and intact] Neuro: [no focal neuro deficits] Psych: [Alert], [oriented], [appropriate affect] Discharge Diagnosis: Right foot ulcer secondary to traumatic injury Cellulitis right foot Diabetes mellitus type 2 Hypertension Resolved: lactic acidosis, hyperkalemia Chronic conditions: Restless leg syndrome, dyslipidemia Pertinent Studies: Foot X Ray Procedures: Wound culture collection Patient Condition at Discharge: Stable Plan - Discharge Summary New Discharge Prescriptions: New Amoxicillin/Potassium Clav [Augmentin 875-125 Tablet] 1 tab PO Q12HR 10 Days #20 tab oxyCODONE-APAP 10-325MG [Percocet 10-325 mg] 1 each PO Q4HR PRN #18 tab PRN Reason: MODERATE Pain Continue metFORMIN HCL [Glucophage] 1,000 mg PO HS traZODone HCL [Desyrel] 25 - 50 mg PO HS Pramipexole [Mirapex] 0.125 mg PO HS lisinopriL 10 mg PO HS Pioglitazone [Actos] 30 mg PO HS Metoprolol Succinate (ER) [Toprol XL] 50 mg PO HS Atorvastatin [Lipitor] 10 mg PO HS Esomeprazole Magnesium [NexIUM 24Hr] 20 mg PO HS Discontinued Cephalexin [Keflex] 500 mg PO QID Discharge Medication List Atorvastatin [Lipitor] 10 mg PO HS 02/11/22 [History] Esomeprazole Magnesium [NexIUM 24Hr] 20 mg PO HS 02/11/22 [History] Metoprolol Succinate (ER) [Toprol XL] 50 mg PO HS 02/11/22 [History] Pioglitazone [Actos] 30 mg PO HS 02/11/22 [History] Pramipexole [Mirapex] 0.125 mg PO HS 02/11/22 [History] lisinopriL 10 mg PO HS 02/11/22 [History] metFORMIN HCL [Glucophage] 1,000 mg PO HS 02/11/22 [History] traZODone HCL [Desyrel] 25 - 50 mg PO HS 02/11/22 [History] Amoxicillin/Potassium Clav [Augmentin 875-125 Tablet] 1 tab PO Q12HR 10 Days #20 tab 02/15/22 [Rx] oxyCODONE-APAP 10-325MG [Percocet 10-325 mg] 1 each PO Q4HR PRN #18 tab 05/03/22 [Rx] Follow up Appointment(s)/Referral(s): Frank Sandy DO [Primary Care Provider] - 1-2 days Fredis Hazel MD [STAFF PHYSICIAN] - 1 Week Activity/Diet/Wound Care/Special Instructions: Diet: Diabetic, Cardiac Follow up with your PCP with 1-2 days of discharge. Follow up with your Electronic Security Technician within 1 week of discharge. Follow up with Dr. Hazel within 1 week of discharge. Come back to the ED for increased drainage of your foot wound, fever > 100.4F not relieved with tylenol, intractable pain in the right foot. Take all medications as advised. Discharge Disposition: HOME SELF-CARE
[2022-02-15 12:30] LABS: Glucose,Whole Blood 107 mg/dL (75-99)
== END 2022-02-15 14:08 | disposition home or self-care (01) | DRG 605 ==
LOC: EC 15:34 → 6NMEDSUR 18:38 → OBSVTOIN 02-14 10:05
PROVIDERS: ADMIT Internal Medicine; ATTEND Internal Medicine
DX: S91.331A Puncture wound without foreign body, right foot, initial encounter (principal); E87.2 Acidosis; L03.115 Cellulitis of right lower limb; A28.0 Pasteurellosis; M79.673 Pain in unspecified foot; E11.621 Type 2 diabetes mellitus with foot ulcer; E87.5 Hyperkalemia; I10 Essential (primary) hypertension; G25.81 Restless legs syndrome; E78.5 Hyperlipidemia, unspecified; L97.519 Non-pressure chronic ulcer of other part of right foot with unspecified severity; W20.8XXA Other cause of strike by thrown, projected or falling object, initial encounter; Z79.84 Long term (current) use of oral hypoglycemic drugs; Z79.899 Other long term (current) drug therapy; Z86.73 Personal history of transient ischemic attack (TIA), and cerebral infarction without residual deficits; Z90.49 Acquired absence of other specified parts of digestive tract
CPT/HCPCS: 36415; 80048; 80053; 80202; 82565; 83036; 83605; 85025; 85652; 86140; 87040; 87070; 87205; 96365; 96367; 99284